=== PATIENT | male | born 1960 | race African-American/Black ===

== ENCOUNTER 2018-05-25 13:39 | Inpatient (IN) | payer BC ==
[~2018-05-25] VITALS: Ht 180.3 cm; Wt 108.9 kg
[~2018-05-25 13:39] MED LIST: BIDIL TABLET1 EACH PO; BUMETANIDE1 MG PO; CALCITRIOL0.25 MCG PO; CLONIDINE HCL0.1 MG PO; CLONIDINE HCL0.2 MG PO; DOXAZOSIN MESYLA4 MG PO; EDARBI80 MG PO; GLYBURIDE5 MG PO; LANTUS100 UNITS/ SQ; LORAZEPAM0.5 MG PO; METOLAZONE5 MG PO; METOPROLOL PO; MONTELUKAST SOD10 MG PO; NIFEDIPINE ER30 M1 PO; NOVOLOG100 UNIT/1 SQ; SINGULAIR10 MG PO; VIT D3 PO
[2018-05-25] MEDS ORDERED: SODIUM CHLORIDE 0.9% 250ML 250 ML IV ONE (16:30)
[2018-05-25 16:45] LABS: BASOPHILS % 0.4 % (0.0-1.0); EOSINOPHILS # (AUTO) 0.1 (0.0-0.4); EOSINOPHILS % 2.3 % (0.0-6.0); HEMATOCRIT 21.9 % (38.2-49.6); LYMPHOCYTES % 19.9 % (18.0-39.1); MEAN CORPUSCULAR VOLUME 96.9 fL (81-99); MONOCYTES # (AUTO) 0.5 (0.2-0.8); MONOCYTES % 10.3 % (4.4-11.3); NEUTROPHILS # (AUTO) 3.3 (2.1-6.9); NEUTROPHILS % 66.9 % (38.7-80.0); PLATELET COUNT 194 x10e3/uL (140-360); RED BLOOD COUNT 2.26 x10e6/uL (4.3-5.7); RED CELL DISTRIBUTION WIDTH 14.9 % (11.7-14.4)
[2018-05-25] MEDS ORDERED: METOPROLOL 50 MG PO SCH (17:00)
[2018-05-25] MEDS ORDERED: LORAZEPAM 0.5 MG TAB PO PRN (17:00)
[2018-05-25] MEDS ORDERED: INSULIN DETEMIR 100 UNIT/ML PEN SQ SCH (17:00)
[2018-05-25] MEDS ORDERED: ACETAMINOPHEN 325 MG TAB PO PRN (17:00)
[2018-05-25 17:20] VITALS: BP 151/77
[2018-05-25] MEDS: BUMETANIDE 1 MG TAB PO SCH (17:45)
[2018-05-25] MEDS: METOPROLOL TARTRATE 50 MG TAB PO SCH (17:45)
[2018-05-25 20:00] VITALS: BP 138/74
[2018-05-25] MEDS ORDERED: ISOSORB DINIT PO SCH (21:00)
[2018-05-25] MEDS ORDERED: [UNRECOGNIZED DRUG - REMARK] PO SCH (21:00)
[2018-05-25] MEDS ORDERED: NON-FORMULARY MEDICATION (Doxazosin Mesylate 4 MG) PO SCH (21:00)
[2018-05-25] MEDS ORDERED: HYDRALAZINE HCL PO SCH (21:00)
[2018-05-25] MEDS ORDERED: HYDRALAZINE HCL 25 MG TAB PO SCH (21:00)
[2018-05-25] MEDS ORDERED: ISOSORBIDE DINITRATE 20 MG TAB PO SCH (21:00)
[2018-05-25] MEDS: BIDIL PO SCH (21:29)
[2018-05-25] MEDS: CLONIDINE HCL 0.2 MG TAB PO SCH (21:29)
[2018-05-25] MEDS: DOXAZOSIN MESYLATE 2 MG TAB PO SCH (21:29)
[2018-05-25] MEDS ORDERED: SODIUM CHLORIDE 0.9% 250ML 250 ML ONE (21:57)
[2018-05-26] VITALS (7 sets, daily range): BP systolic 143–167; BP diastolic 63–84
[2018-05-26] MEDS: FUROSEMIDE INJ 10 MG/ML 2 ML VIAL IV PRN ×4 (01:03→21:36)
[2018-05-26] MEDS ORDERED: SODIUM CHLORIDE 0.9% 250ML 250 ML ONE ×3 (01:16→15:18)
[2018-05-26 07:27] LABS: BASOPHILS % 0.5 % (0.0-1.0); EOSINOPHILS # (AUTO) 0.1 (0.0-0.4); EOSINOPHILS % 2.8 % (0.0-6.0); HEMOGLOBIN 7.6 g/dL (14.0-18.0); LYMPHOCYTES % 24.5 % (18.0-39.1); MEAN CORPUSCULAR HEMOGLOBIN 31.1 pg (28-32); MEAN CORPUSCULAR VOLUME 94.3 fL (81-99); MONOCYTES # (AUTO) 0.6 (0.2-0.8); MONOCYTES % 14.2 % (4.4-11.3); NEUTROPHILS # (AUTO) 2.5 (2.1-6.9); PLATELET COUNT 177 x10e3/uL (140-360); RED BLOOD COUNT 2.44 x10e6/uL (4.3-5.7); RED CELL DISTRIBUTION WIDTH 15.2 % (11.7-14.4)
[2018-05-26] MEDS ORDERED: SODIUM CHLORIDE 0.9% 250ML 250 ML IV ONE ×2 (08:15→14:30)
[2018-05-26] MEDS ORDERED: CHOLECALCIFEROL 1,000 UNIT TAB PO SCH (09:00)
[2018-05-26] MEDS ORDERED: CALCITRIOL 0.25 MCG CAP PO SCH (09:00)
[2018-05-26] MEDS ORDERED: MONTELUKAST SODIUM 10 MG TAB PO SCH (09:00)
[2018-05-26] MEDS ORDERED: METOLAZONE 5 MG TAB PO SCH (09:00)
[2018-05-26] MEDS ORDERED: NIFEDIPINE CR 30 MG TAB PO SCH (09:00)
[2018-05-26] MEDS ORDERED: VIT D3 4000 UNIT PO SCH (09:00)
[2018-05-26] MEDS: BIDIL PO SCH ×4 (09:03→21:07)
[2018-05-26] MEDS: CLONIDINE HCL 0.2 MG TAB PO SCH ×3 (09:03→21:07)
[2018-05-26] MEDS: BUMETANIDE 1 MG TAB PO SCH ×2 (09:04→16:47)
[2018-05-26] MEDS: METOPROLOL TARTRATE 50 MG TAB PO SCH ×2 (09:04→18:50)
[2018-05-26 14:19] LABS: HEMATOCRIT 24.6 % (38.2-49.6); HEMOGLOBIN 8.1 g/dL (14.0-18.0)
--- NOTE | 2018-05-26 17:32 | Progress Note ---
DATE: May 26, 2018 A 58-year-old gentleman, patient of mine at the office, who came because of lack of energy, feeling weak and tired, and found to be severely anemic and admitted for blood transfusion. He denied any melena. Denies seeing any blood in the stool. Denied any hematemesis. The patient received so far 3 units of blood and his hemoglobin and hematocrit are about 8 and 24. I advised the nurse to give him one more unit, a total of 4, with Lasix at the end of his transfusion, and will recheck his hemoglobin and hematocrit at safe level of around 9 hemoglobin and 25-30 hematocrit. Will discharge him home to continue his workup which includes upper and lower endoscopy this coming Tuesday. Job#: [id number]
[2018-05-26] MEDS: DOXAZOSIN MESYLATE 2 MG TAB PO SCH (21:06)
[2018-05-26 21:28] LABS: HEMATOCRIT 27.5 % (38.2-49.6); HEMOGLOBIN 9.2 g/dL (14.0-18.0)
== END 2018-05-26 22:25 | disposition home or self-care (01) | DRG 812 ==
LOC: IMCU 16:02
PROVIDERS: ADMIT Internal Medicine Gastroenterology; ATTEND Internal Medicine Gastroenterology
PROC: 30233N1 Transfusion of Nonautologous Red Blood Cells into Peripheral Vein, Percutaneous Approach (ICD-10-PCS; principal; 2018-05-25)
DX: D64.9 Anemia, unspecified (principal)
CPT/HCPCS: 36415; 36430; 82948; 85014; 85018; 85025; 86850; 86900; 86920; J1940; J7050; P9016

== ENCOUNTER → 2018-05-30 | Day surgery (SDC) | payer BC ==
[2018-05-25 10:50] LABS: BASOPHILS % 0.4 % (0.0-1.0); EOSINOPHILS # (AUTO) 0.1 (0.0-0.4); HEMATOCRIT 22.5 % (38.2-49.6); HEMOGLOBIN 7.2 g/dL (14.0-18.0); LYMPHOCYTES % 17.6 % (18.0-39.1); MEAN CORPUSCULAR HEMOGLOBIN 31.2 pg (28-32); MEAN CORPUSCULAR VOLUME 97.4 fL (81-99); MONOCYTES # (AUTO) 0.7 (0.2-0.8); MONOCYTES % 13.4 % (4.4-11.3); NEUTROPHILS # (AUTO) 3.6 (2.1-6.9); NEUTROPHILS % 66.4 % (38.7-80.0); PLATELET COUNT 195 x10e3/uL (140-360); RED BLOOD COUNT 2.31 x10e6/uL (4.3-5.7); RED CELL DISTRIBUTION WIDTH 14.8 % (11.7-14.4)
[~2018-05-30] MED LIST changes: +FENTANYL CITRATE/PF 100MCG/2 ML INJ ONE; +HYOSCYAMINE SULFATE 0.5 MG/ML AMP ONE; +LIDOCAINE HCL 2% LOCAL INJ 5 ML SDV VIAL INJ ONE; +MIDAZOLAM HCL 2 MG/2 ML VIAL ONE; +PROPOFOL IV EMULSION 10 MG/ML 50 ML VIAL ONE
[2018-05-30 10:02] LABS: BASOPHILS % 0.8 % (0.0-1.0); EOSINOPHILS # (AUTO) 0.1 (0.0-0.4); EOSINOPHILS % 1.9 % (0.0-6.0); HEMATOCRIT 29.1 % (38.2-49.6); HEMOGLOBIN 9.6 g/dL (14.0-18.0); LYMPHOCYTES # (AUTO) 0.9 (1.0-3.2); LYMPHOCYTES % 16.7 % (18.0-39.1); MEAN CORPUSCULAR HEMOGLOBIN 30.9 pg (28-32); MEAN CORPUSCULAR VOLUME 93.6 fL (81-99); MONOCYTES # (AUTO) 0.6 (0.2-0.8); MONOCYTES % 12.2 % (4.4-11.3); NEUTROPHILS # (AUTO) 3.5 (2.1-6.9); PLATELET COUNT 177 x10e3/uL (140-360); RED BLOOD COUNT 3.11 x10e6/uL (4.3-5.7); RED CELL DISTRIBUTION WIDTH 15.2 % (11.7-14.4)
== END | disposition home or self-care (01) ==
LOC: OR 06:40
PROVIDERS: ATTEND Internal Medicine Gastroenterology
DX: D64.9 Anemia, unspecified (principal); D12.2 Benign neoplasm of ascending colon; K29.40 Chronic atrophic gastritis without bleeding; B96.81 Helicobacter pylori [H. pylori] as the cause of diseases classified elsewhere; K31.89 Other diseases of stomach and duodenum; K22.8 Other specified diseases of esophagus; K44.9 Diaphragmatic hernia without obstruction or gangrene; K59.09 Other constipation; K64.8 Other hemorrhoids; I48.91 Unspecified atrial fibrillation; Q61.2 Polycystic kidney, adult type; E11.22 Type 2 diabetes mellitus with diabetic chronic kidney disease; I12.9 Hypertensive chronic kidney disease with stage 1 through stage 4 chronic kidney disease, or unspecified chronic kidney disease; N18.9 Chronic kidney disease, unspecified; Z01.812 Encounter for preprocedural laboratory examination; Z79.4 Long term (current) use of insulin; Z68.34 Body mass index [BMI] 34.0-34.9, adult
CPT/HCPCS: 36415 ×2; 43239; 45384; 85025 ×2; J1980; J2001; J2250; 45378

== ENCOUNTER → 2023-10-04 | Day surgery (SDC) | payer MEDICARE, BC ==
[~2023-10-04] MED LIST changes: +CRESTOR10 MG PO; +DEXTROSE 5% 250ML 250 ML IV ONE; +ELIQUIS5 MG PO; -FENTANYL CITRATE/PF 100MCG/2 ML INJ ONE; +FLOMAX0.4 MG PO; +FLONASE ALLERG9.9 ML INH; +HYDRALAZINE HCL50 MG PO; -HYOSCYAMINE SULFATE 0.5 MG/ML AMP ONE; -MIDAZOLAM HCL 2 MG/2 ML VIAL ONE; +MUCINEX600 MG PO; +PHENYLEPHRINE HCL 1% 10 MG/ML VIAL ONE; +PROPOFOL IV EMULSION 10 MG/ML 20 ML VIAL ONE; -PROPOFOL IV EMULSION 10 MG/ML 50 ML VIAL ONE; +SENSIPAR30 MG PO; +SODIUM CHLORIDE 0.9% 500ML 500 ML ONE; +VELPHORO500 MG PO
[2023-10-04 12:29] LABS: BASOPHILS # (AUTO) 0.1 (0.0-0.1); BASOPHILS % 1.4 % (0.0-1.0); EOSINOPHILS # (AUTO) 0.1 (0.0-0.4); EOSINOPHILS % 2.8 % (0.0-6.0); HEMATOCRIT 34.7 % (38.2-49.6); HEMOGLOBIN 11.2 g/dL (14.0-18.0); LYMPHOCYTES # (AUTO) 1.2 (1.0-3.2); LYMPHOCYTES % 23.4 % (18.0-39.1); MEAN CORPUSCULAR HGB CONC 32.3 g/dL (31-35); MEAN CORPUSCULAR VOLUME 102.4 fL (81-99); MONOCYTES # (AUTO) 0.5 (0.2-0.8); MONOCYTES % 9.3 % (4.4-11.3); NEUTROPHILS # (AUTO) 3.1 (2.1-6.9); NEUTROPHILS % 62.9 % (38.7-80.0); PLATELET COUNT 171 x10e3/uL (140-360); RED BLOOD COUNT 3.39 x10e6/uL (4.3-5.7); RED CELL DISTRIBUTION WIDTH 13.9 % (11.7-14.4); WHITE BLOOD COUNT 4.96 x10e3/uL (4.8-10.8)
[2023-10-04 12:34] LABS: INR 0.99; PROTHROMBIN TIME 13.3 seconds (11.9-14.5)
[2023-10-04 12:35] LABS: PARTIAL THROMBOPLASTIN TIME 29.5 seconds (23.8-35.5)
[2023-10-04 12:38] LABS: ANION GAP 23.1 mmol/L (8-16); CALCIUM 10.2 mg/dL (8.4-10.2); CREATININE, SERUM 9.24 mg/dL (0.72-1.25); POTASSIUM 4.1 mmol/L (3.5-5.1)
[2023-10-04 15:55] VITALS: BP 139/74; PULSE 89; RESP 14; O2SAT 95
== END | disposition home or self-care (01) ==
LOC: OR 11:00
PROVIDERS: ATTEND Internal Medicine Gastroenterology
DX: K31.89 Other diseases of stomach and duodenum (principal); D12.2 Benign neoplasm of ascending colon; D12.3 Benign neoplasm of transverse colon; K29.50 Unspecified chronic gastritis without bleeding; K29.80 Duodenitis without bleeding; K63.89 Other specified diseases of intestine; K26.9 Duodenal ulcer, unspecified as acute or chronic, without hemorrhage or perforation; Q40.3 Congenital malformation of stomach, unspecified; K57.30 Diverticulosis of large intestine without perforation or abscess without bleeding; K44.9 Diaphragmatic hernia without obstruction or gangrene; K64.8 Other hemorrhoids; D64.9 Anemia, unspecified; I11.0 Hypertensive heart disease with heart failure; I50.9 Heart failure, unspecified; E78.5 Hyperlipidemia, unspecified; E11.9 Type 2 diabetes mellitus without complications; I49.8 Other specified cardiac arrhythmias; Z88.1 Allergy status to other antibiotic agents; Z88.2 Allergy status to sulfonamides; Z01.810 Encounter for preprocedural cardiovascular examination; Z79.02 Long term (current) use of antithrombotics/antiplatelets; Z79.899 Other long term (current) drug therapy; Z87.01 Personal history of pneumonia (recurrent)
CPT/HCPCS: 36415; 43239; 45385; 80048; 82948; 85025; 85610; 85730; 93005; J2001; J2371; J2704; J7040; J7070; 45378